=== PATIENT | male | born 1940 | race Caucasian/White ===

== ENCOUNTER 2023-08-02 06:34 | Inpatient (IN) ==
[2023-08-02 07:23] LABS: SARS COV-2 RNA RAPID NAAT NEGATIVE (NEGATIVE)
[2023-08-02] MEDS ORDERED: SODIUM CHLORIDE 1,000 ML IV STA (07:30)
--- NOTE | 2023-08-02 07:30 | ED.PDOC ---
General ED Provider: Dr. LASHAWN CARTER MD Chief Complaint: Fall Stated Complaint: Patient with history of hypertension, type 2 diabetes, states he attempted to get out of bed and his right knee gave out and he fell to the floor hitting his head and complains of neck stiffness, patient also complains of having left-sided posterior rib pain. Patient has pain upon inspiration. Patient denies loss of consciousness, blurred vision, nausea, patient complains of a productive cough over the past week. Denies fever, chills and dyspnea, Time Seen by Provider: 08/02/23 07:23 Mode of Arrival: Ambulance Information Source: Patient and EMT Exam Limitations: Clinical condition Primary Care Provider: JACKIE OLMOS MD Nursing and Triage Documentation Reviewed and Agree: Yes Review of Systems Review Of Systems Constitutional: Reports No symptoms Eyes: Reports No symptoms Respiratory: Reports Cough Cardiac: Reports Chest pain GI: Reports No symptoms : Reports No symptoms Musculoskeletal: Reports No symptoms and Neck pain Skin: Reports No symptoms Neurological: Reports No symptoms Endocrine: Reports No symptoms Hematologic/Lymphatic: Reports No symptoms All Other Systems: Reviewed and Negative [facility] Social History Smoking and tobacco status: Former smoker Alcohol intake: current Substance use type: does not use Special carl needs: No Agree to transfusion: Yes Adopted: No Caregiver/support person: No Foster care: No Household members: spouse Housing: house Marital status: M Lives independently: Yes Number of children: 5 service: No FDC: No Current occupational status: retired History of recent travel: No Do you think of yourself as: straight/heterosexual Current gender identity: male Seatbelt use: always Drives intoxicated or rides with intoxicated motorcycle 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: No Water heater temperature set < 120 degrees: Yes Working smoke detector in home: Yes Fire extinguisher in home: Yes Carbon monoxide detector in home: Yes Physical Exam Physical Exam Appearance: Reports Well-appearing (Patient arrives emergency room via EMS with an intact rigid cervical collar.) Ill-appearing: None Pain Distress: Moderate Eyes: Reports RADHIKA and EOMI ENT: Reports Ears normal, Nose normal and Oropharynx normal Neck: Nonsupple (There is moderate posterior cervical vertebral tenderness) Respiratory: Reports Airway patent, Breath sounds clear, Breath sounds equal and Other (Chest wall there is left posterior chest wall tenderness with swelling from the 8th-12th ribs. There is no ecchymosis or crepitus. I examined his back his neck and his history I examined his ribs are) Cardiovascular: Reports RRR, Pulses normal, No rub and No murmur GI/: Reports Soft, Nontender, No masses and Bowel sounds normal Musculoskeletal: Reports Normal strength, ROM intact and No calf tenderness Skin: Reports Warm and Normal color Neurological: Reports Sensation intact, Motor intact, Reflexes intact, Alert and Oriented (glascow coma 15 scale 15) Psychiatric: Reports Affect appropriate and Mood appropriate Physician Notification Case Discussed Physician Notified: Discussed with Dr. Olmos at 0915 for referral to the hospitalist Time of Notification: 09:15 Comments: Referred to the hospitalist for observation Physician Notified: Discussed with hospitalist Faviola Time of Notification: 09:19 Comments: For admission to observation Critical Care Note Critical Care Note Total Critical Care Time (mins): 0 Course Course 08/02/23 07:46 08/02/23 07:46 Orders, Labs, Meds: Lab Review 08/02/23 08/02/23 07:00 07:46 WBC 13.57 H RBC 3.46 L Hgb 11.9 L Hct 34.8 L MCV 100.6 H MCH 34.4 H MCHC 34.2 RDW Coeff of Charisma 12.2 Plt Count 198 Immature Gran % (Auto) 1.6 Neut % (Auto) 71.2 Lymph % (Auto) 15.3 [place] % (Auto) 11.6 H Eos % (Auto) 0.1 Baso % (Auto) 0.2 Neut # (Auto) 9.7 H Lymph # (Auto) 2.1 [place] # (Auto) 1.6 Eos # (Auto) 0.0 Baso # (Auto) 0.0 Immature Gran # (Auto) 0.2 Sodium 124.0 L Potassium 4.94 Chloride 91.0 L Carbon Dioxide 24.2 Anion Gap 13.74 BUN 29.5 H Creatinine 1.45 H Estimated GFR (MDRD) 46.00 BUN/Creatinine Ratio 20.34 Glucose 273.3 H Calcium 9.02 SARS CoV-2 RNA Rapid BRUCE Negative Orders Category Date Time Status [facility]MIT [facility]IENT [facility] ([facility]IT[facility] BED) ADMISSION 08/02/23 09:18 Active EKG-(ED ONLY) Stat CARDIO 08/02/23 07:35 Completed TELEMETRY MONITORING TELE CARE 08/02/23 09:18 Active BMP [BASIC METABOLIC PANEL] Stat LAB 08/02/23 07:46 Completed CBC W/ AUTO DIFF Stat LAB 08/02/23 07:46 Completed COVID [SARS COV-2 RNA RAPID BRUCE] Stat LAB 08/02/23 07:00 Completed Ceftriaxone/D5w 1 gm Premix [Rocephin 1 gm/50 ml D5w] Meds 08/02/23 09:01 Active 1 gm in 50 ml IV ONCE Morphine Sulfate [Morphine 4 mg/ml Syringe] Meds 08/02/23 07:33 Discontinued 4 mg IVP ONCE ONE Ondansetron HCl/Pf [Zofran 4 mg/2 ml] Meds 08/02/23 07:33 Discontinued 4 mg IVP ONCE STA Sodium Chloride 0.9% [Sodium Chloride] 1,000 ml Meds 08/02/23 07:30 Active IV 100 mls/hr CT CERVICAL SPINE W/O CONTRAST Stat RADS 08/02/23 07:[address] CHEST W/O CONTRAST Stat RADS 08/02/23 07:[address] HEAD W/O CONTRAST Stat RADS 08/02/23 07:30 Completed Medications Generic Name Dose Route Start Last Admin Trade Name Freq PRN Reason Stop Dose Admin Sodium Chloride 1,000 mls @ 100 mls/hr 08/02/23 07:30 08/02/23 07:49 Sodium Chloride IV 08/02/23 17:29 100 mls/hr .Q10H STA Administration CEFTRIAXONE/D5W 1 GM PREMIX 1 gm in 50 mls @ 100 mls/hr 08/02/23 09:01 08/02/23 09:12 Rocephin 1 Gm/50 Ml D5w IV 08/02/23 09:30 100 mls/hr ONCE ONE Administration Discontinued Medications Generic Name Dose Route Start Last Admin Trade Name Freq PRN Reason Stop Dose Admin Morphine Sulfate 4 mg 08/02/23 07:33 08/02/23 07:57 Morphine Sulfate 4 Mg/Ml Syringe IVP 08/02/23 07:34 4 mg ONCE ONE Administration Ondansetron HCl 4 mg 08/02/23 07:33 08/02/23 07:50 Ondansetron Hcl/Pf 4 Mg/2 Ml Sdv IVP 08/02/23 07:34 4 mg ONCE STA Administration Vital Signs: Temp Pulse Resp BP Pulse Ox 08/02/23 06:47 98.8 F 102 H 20 136/77 96 Discharge Plan Discharge Patient Disposition: PLACED OBSERVATION Discharge Problem: Generalized muscle weakness, Acute hyponatremia Left rib fracture Qualifiers: Encounter type: initial encounter Prescriptions: No Action triamterene-hydrochlorothiazid 37.5-25 mg tablet 1 tab PO QAM Qty: 90 1RF Rx Instructions: take one 3-4 times weekly omeprazole 20 mg capsule,delayed release(DR/EC) See Rx Instructions .ROUTE .COMPLEX Qty: 90 1RF Dose Instruction: TAKE 1 CAPSULE EVERY DAY Rx Instructions: TAKE 1 CAPSULE EVERY DAY levothyroxine 100 mcg tablet See Rx Instructions .ROUTE .COMPLEX Qty: 90 1RF Dose Instruction: TAKE 1 TABLET EVERY DAY Rx Instructions: TAKE 1 TABLET EVERY DAY pravastatin 80 mg tablet See Rx Instructions .ROUTE .COMPLEX Qty: 90 1RF Dose Instruction: TAKE 1 TABLET EVERY DAY Rx Instructions: TAKE 1 TABLET EVERY DAY enalapril maleate 5 mg tablet See Rx Instructions .ROUTE .COMPLEX Qty: 90 1RF Dose Instruction: TAKE 1 TABLET EVERY DAY Rx Instructions: TAKE 1 TABLET EVERY DAY diltiazem HCl 240 mg capsule,extended release 24hr See Rx Instructions .ROUTE .COMPLEX Qty: 90 1RF Dose Instruction: TAKE 1 CAPSULE EVERY DAY Rx Instructions: TAKE 1 CAPSULE EVERY DAY glimepiride 4 mg tablet See Rx Instructions .ROUTE .COMPLEX Qty: 90 1RF Dose Instruction: TAKE 1 TABLET EVERY DAY Rx Instructions: TAKE 1 TABLET EVERY DAY Janumet 50-1,000 mg tablet See Rx Instructions .ROUTE .COMPLEX Qty: 180 1RF Dose Instruction: TAKE 1 TABLET TWICE DAILY Rx Instructions: TAKE 1 TABLET TWICE DAILY calcium carbonate [Calcium 600] 600 mg calcium (1,500 mg) tablet 600 mg PO BID vitamin B complex [B Complex-Vitamin B12] Tablet 1 tab PO QDAY Did you review [place] [employer] for ALL controlled substances?: No ED Provider: LINDEN KEMP Condition: Stable Physician Progress Note: History obtained from the patient and spouse who states that getting up out of bed this morning while walking his right knee gave out he fell to the floor injuring his head has neck stiffness and left-sided posterior rib pain and swelling. Patient denies loss of consciousness, dizziness, blurred vision, focal numbness, tingling, weakness in extremities, back pain and abdominal pain. Patient arrives to the emergency room via EMS with a rigid cervical collar intact Glascow coma scale-15 [] Patient given IV fluids normal saline 1 L at 100 mL/hour, Zofran 4 mg, morphine sulfate 4 mg, Patient given Rocephin 1 g IV piggyback Laboratory data COVID is negative, CBC the white blood cell count is 13,500, hemoglobin 1.9, adequate 34.8, platelet count 191,000. Chemistries with sodium 124 chloride 91 potassium 4.8 BUN 29, creatinine 1.4, glucose [address] will follow up intravenous contrast interpreted by the radiologist shows evidence of fracture dislocation there is chronic degenerative disc disease The head CT scan without intravenous contrast interpreted by the radiologist shows no acute intracranial abnormality. No fracture no hemorrhage no mass no midline shift. The chest CT without intravenous contrast interpreted by the radiologist is consistent with a left-sided minimally displaced fractures of the fifth, sixth, seventh ribs. There is no pneumothorax there is trace left pleural effusion with lower lobe airway thickening and consolidation suggestive of atelectasis. There are left renal cyst noted. There is sequela of old granulomatous disease with minimal pleural thickening bilaterally. Differential diagnosis: 1) left rib fractures fifth, sixth, seventh 2) acute cervical strain 3) acute bronchiolitis 4) scalp contusion 5) hyponatremia 6) generalized weakness Discussed with Dr. Olmos at 0918 for referral to the hospitalist for inpatient observation Discussed with the hospitalist Faviola at 0924 observation
[2023-08-02] MEDS ORDERED: ZOFRAN 4 MG/2 ML IVP STA (07:33)
[2023-08-02] MEDS ORDERED: MORPHINE 4 MG/ML SYRINGE IVP ONE (07:33)
[2023-08-02 08:00] LABS: BASOPHILS % (AUTO) 0.2 % (0.0-3.0); EOSINOPHILS % (AUTO) 0.1 % (0.0-7.0); HEMATOCRIT 34.8 % (42.0-52.0); HEMOGLOBIN 11.9 g/dl (14.0-18.0); IMMATURE GRANULOCYTE # (AUTO) 0.2 (0.0-1.0); IMMATURE GRANULOCYTE % (AUTO) 1.6 % (0.0-5.0); LYMPHOCYTES # (AUTO) 2.1 K/uL (0.60-3.4); LYMPHOCYTES % (AUTO) 15.3 (10.0-50.0); MEAN CORPUSCULAR HEMOGLOBIN 34.4 pg (27.0-31.0); MEAN CORPUSCULAR HGB CONC 34.2 (31.8-35.4); MEAN CORPUSCULAR VOLUME 100.6 fl (80.0-94.0); MONOCYTES # (AUTO) 1.6 K/uL (0.4-2.0); MONOCYTES % (AUTO) 11.6 (0-10); NEUTROPHILS # (AUTO) 9.7 K/ul (2.0-6.9); NEUTROPHILS % (AUTO) 71.2 % (42.2-75.2); PLATELET COUNT 198 10^3/uL (140-440); RDW COEFFICIENT OF VARIATION 12.2 % (11.6-14.8); RED BLOOD COUNT 3.46 10^6/ul (4.70-6.10); WHITE BLOOD COUNT 13.57 K/ul (4.2-10.2)
[2023-08-02 08:14] LABS: BLOOD UREA NITROGEN 29.5 mg/dL (9-20); CALCIUM 9.02 mg/dL (8.4-10.2); CARBON DIOXIDE 24.2 mmol/L (22-30.0); CREATININE 1.45 mg/dL (0.60-1.10); GLUCOSE 273.3 mg/dL (74-106); POTASSIUM 4.94 mmol/L (3.5-5.1)
--- NOTE | 2023-08-02 08:21 | CT ---
EXAM: CT BRAIN WITHOUT CONTRAST HISTORY: Fall injury TECHNIQUE: Multi-slice sequential. Coronal and sagittal reformations were performed. COMPARISON: None FINDINGS: There is no acute intracranial hemorrhage, extraxial fluid collection, mass affect, or midlineshift. There is mild to moderate diffuse sulcal prominence. Ventricular prominence is consistent with the degree of parenchymal volume loss. Periventricular white matter hypodensity is seen. Intracranial a therosclerosis is present. The basal cisterns are patent. No large vascular territory area of hypod ensity is seen within the brain. The calvarium is unremarkable. Visualized paranasal sinuses are cl ear. Mastoid air cells are clear. :::::::::::::::::::::::::::::: IMPRESSION: 1. No acute intracranial findings. 2. Atrophy and small vessel ischemic disease. :::::::::::::::::::::::::::::: All CT scans are performed using dose optimization techniques as appropriate to the performed exam an d include at least one of the following: Automated exposure control, adjustment of the mA and/or kV according t o size, and the use of iterative reconstruction technique.
--- NOTE | 2023-08-02 08:23 | CT ---
EXAM: CT CHEST WITHOUT CONTRAST HISTORY: Fall with left-sided chest pain COMPARISON: CT chest 08/13/2020 TECHNIQUE: Serial axial images of the chest were obtained from the lung apices to the upper abdomen without contrast. These were viewed in multiple planes. FINDINGS: The thyroid has been removed. The visualized vessels demonstrate mild scattered atheroscl erotic disease without aneurysm or stenosis. The heart is normal in size without pericardial effusio n. There are no pathologically enlarged mediastinal or hilar lymph nodes. There are calcified left hilar lymph nodes. There is no pneumothorax. There is trace left pleural fluid with lower lobe airway thickening bilate rally with consolidations. There are benign calcifications in the left lower lobe. There is minimal pleural thickening bilaterally. The central airways are patent. Limited views of the soft tissues in the upper abdomen demonstrate low attenuation left renal cysts. The osseous structures demonstrate right shoulder arthroplasty. There are left-sided minimally disp laced fifth, sixth, and seventh rib fractures. There is multilevel degenerative disease of the spine with facet arthropathy. IMPRESSION: 1. Left-sided minimally displaced fifth sixth and seventh rib fractures. There is no pneumothorax. 2. Trace left pleural fluid with lower lobe airway thickening and consolidations suggestive of atele ctasis. 3. Sequela of old granulomatous disease with minimal pleural thickening bilaterally. 4. Left renal cysts. All CT scans are performed using dose optimization techniques as appropriate to the performed exam an d include at least one of the following: Automated exposure control, adjustment of the mA and/or kV according t o size, and the use of iterative reconstruction technique.
--- NOTE | 2023-08-02 08:29 | CT ---
EXAM: CT CERVICAL SPINE WITHOUT INTRAVENOUS CONTRAST 08/02/2023. SAGITTAL AND CORONAL REFORMATTED IM AGES OBTAINED HISTORY: Neck pain. Fall COMPARISON: None. FINDINGS: There is approximately 2 mm anterolisthesis of C6 on C7. The remaining cervical levels ali gn normally. Vertebral bodies appear intact and the facet joints align normally. Multilevel chronic degenerative disc disease. Disc space narrowing most severe at C4-C5. Multilevel moderate facet arthropathy. There is no acute fracture or subluxation. IMPRESSION: Chronic and degenerative findings of the cervical spine. There is no acute post traumati c osseous abnormality. All CT scans are performed using dose optimization techniques as appropriate to the performed exam an d include at least one of the following: Automated exposure control, adjustment of the mA and/or kV according t o size, and the use of iterative reconstruction technique.
[2023-08-02] MEDS ORDERED: ROCEPHIN 1 GM/50 ML D5W 1 GM/50 ML BAG IV ONE (09:01)
[2023-08-02] MEDS ORDERED: TYLENOL PO PRN (09:26)
[2023-08-02] MEDS ORDERED: MORPHINE 2 MG/ML SYRINGE IVP PRN (09:26)
--- NOTE | 2023-08-02 09:26 | PCM ---
Date of Service Date Seen by Provider: 08/02/23 Time Seen by Provider: 10:30 Admit Day/Time Admission Date: 08/02/23 Admission Time: 09:18 Reason for Admission Chief Complaint: SYMPTOMATIC HYPONATREMIA, WEAKNESS, FALL, Hospital Provider Hospital Provider: Alvin Gannon PA-C, [facility] [place] Primary Care Physician Primary Care Physician: JACKIE LYLE MD History of Present Illness History of Present Illness: Patient is a 82 year old male with pmhx of anemia, hypothyroidism s/p thyroidectomy, gerd, hyperlipidemia, hypertension, and DMT2 who presented to ER with fall. He states he got out of bed and then fell onto a carpeted floor on his left side. He laid there about 2 hours. He denies chest pain, sob, tripping. He is unsure if he felt dizzy prior to the fall or not as he was still "half asleep." He states he's been feeling progressively weaker over the past 1 year. He has had a few falls but not frequently. In ER he had a negative ct head and cspine. He had ct chest showing 3 left sided rib fractures. He was given morphine with relief. He was given rocephin due to having a cough last few days. Covid negative. Pt sodium was 124 which is new. He endorses drinking bourbon every night. He also takes HCTZ. Patient admitted to [facility]. Case Discussed With Case Discussed With: Patient's case was discussed with the ER Physicians, Dr. Burnette. [facility] Surgical History Hx of appendectomy Z90.49 - Acquired absence of other specified parts of digestive tract (ICD- 10) Family History FATHER Renal cancer Mother Pancreatic cancer Social History Smoking and tobacco status: Former smoker Alcohol intake: current Alcohol intake frequency: 3 or more drinks per day Alcohol type: hard liquor Substance use type: does not use Special carl needs: No Agree to transfusion: Yes Adopted: No Caregiver/support person: No Foster care: No Household members: spouse Housing: house Marital status: M Lives independently: Yes Number of children: 5 service: No correction: No Current occupational status: retired History of recent travel: No Do you think of yourself as: straight/heterosexual Current gender identity: male Seatbelt use: always Drives intoxicated or rides with intoxicated public transit trolley driver: No Water heater temperature set < 120 degrees: Yes Working smoke detector in home: Yes Fire extinguisher in home: Yes Carbon monoxide detector in home: Yes Allergies Allergies Allergy/AdvReac Type Severity Reaction Status Date / Time No Known Allergies Allergy Verified 08/02/23 06:53 Current Medications Home Medications calcium carbonate 600 mg calcium (1,500 mg) tablet (Calcium) 600 mg PO BID 11/18/22 [History Confirmed 08/02/23 Last Taken Unknown] vitamin B complex (B Complex-Vitamin B12 tablet) 1 tab PO QDAY 11/18/22 [History Confirmed 08/02/23 Last Taken Unknown] triamterene 37.5 mg-hydrochlorothiazide 25 mg tablet 1 tab PO QAM #90 tabs 03/26/23 [Rx Confirmed 08/02/23 Last Taken Unknown] levothyroxine 100 mcg tablet See Rx Instructions .Route .COMPLEX #90 tabs 04/27/23 [Rx Confirmed 08/02/23 Last Taken Unknown] omeprazole 20 mg capsule,delayed release See Rx Instructions .Route .COMPLEX #90 caps 04/27/23 [Rx Confirmed 08/02/23 Last Taken Unknown] pravastatin 80 mg tablet See Rx Instructions .Route .COMPLEX #90 tabs 04/27/23 [Rx Confirmed 08/02/23 Last Taken Unknown] diltiazem HCl 240 mg capsule,extended release 24 hr See Rx Instructions .Route .COMPLEX #90 caps 06/01/23 [Rx Confirmed 08/02/23 Last Taken Unknown] enalapril maleate 5 mg tablet See Rx Instructions .Route .COMPLEX #90 tabs 06/01/23 [Rx Confirmed 08/02/23 Last Taken Unknown] glimepiride 4 mg tablet See Rx Instructions .Route .COMPLEX #90 tabs 06/01/23 [Rx Confirmed 08/02/23 Last Taken Unknown] sitagliptin phosphate 50 mg-metformin 1,000 mg tablet (Janumet) See Rx Instructions .Route .COMPLEX #180 tabs 07/13/23 [Rx Confirmed 08/02/23 Last Taken Unknown] Home Acetaminophen (Acetaminophen 325 Mg Tablet) 650 mg PO Q4H PRN PRN Reason: Mild Pain Hydrocodone Bitart/Acetaminophen (Hydrocodone Bit/Acetaminophen 5/325 Mg Tablet) 1 tab PO Q6HR PRN PRN Reason: Pain Diltiazem HCl (Diltiazem Hcl 120 Mg Cap.Er.24h) 120 mg PO DAILY [facility] Enalapril Maleate (Enalapril Maleate 5 Mg Tablet) 5 mg PO DAILY [facility] Enoxaparin Sodium (Enoxaparin Sodium 40 Mg/0.4 Ml Syr) 40 mg SUBCUT DAILY [facility] Glimepiride (Glimepiride 2 Mg Tablet) 2 mg PO 0800 [facility] Guaifenesin/Dextromethorphan (Guaifenesin/Dextromethorphan 200/20 Mg/10 Ml Cup) 5 ml PO Q6HR PRN PRN Reason: Cough Sodium Chloride (Sodium Chloride) 1,000 mls @ 125 mls/hr IV .Q8H [facility] Last Admin: 08/02/23 10:04 Dose: 125 mls/hr Insulin Human Lispro (Insulin Lispro 100 Unit/Ml (3 Ml) Vial) 0 unit SUBCUT PRN PRN; Protocol PRN Reason: Hyperglycemia Last Admin: 08/02/23 11:17 Dose: 8 unit Levothyroxine Sodium (Levothyroxine Sodium 100 Mcg Tablet) 100 mcg PO 0700 [facility] Lidocaine (Lidocaine 5% Patch) 1 patch TP DAILY [facility] Last Admin: 08/02/23 11:17 Dose: 1 patch Morphine Sulfate (Morphine Sulfate 2 Mg/Ml Syringe) 2 mg IVP Q6H PRN PRN Reason: Pain Omeprazole (Omeprazole 20 Mg Capsule.Dr) 40 mg PO DAILY [facility] Pravastatin Sodium (Pravastatin Sodium 40 Mg Tablet) 40 mg PO DAILY [facility] Discontinued Medications Sodium Chloride (Sodium Chloride) 1,000 mls @ 100 mls/hr IV .Q10H STA Stop: 08/02/23 17:29 Last Infusion: 08/02/23 10:56 Dose: Infused CEFTRIAXONE/D5W 1 GM PREMIX (Rocephin 1 Gm/50 Ml D5w) 1 gm in 50 mls @ 100 mls/hr IV ONCE ONE Stop: 08/02/23 09:30 Last Admin: 08/02/23 09:12 Dose: 100 mls/hr MAGNESIUM SULFATE IN WATER (Magnesium Sulf 2 G/50 Ml Bag) 2 gm in 50 mls @ 25 mls/hr IV ONCE ONE Stop: 08/02/23 13:04 Last Admin: 08/02/23 12:25 Dose: 25 mls/hr Morphine Sulfate (Morphine Sulfate 4 Mg/Ml Syringe) 4 mg IVP ONCE ONE Stop: 08/02/23 07:34 Last Admin: 08/02/23 07:57 Dose: 4 mg Ondansetron HCl (Ondansetron Hcl/Pf 4 Mg/2 Ml Sdv) 4 mg IVP ONCE STA Stop: 08/02/23 07:34 Last Admin: 08/02/23 07:50 Dose: 4 mg Review of Systems Constitutional: Reports Fatigue and Weakness; Denies Fever Head: Reports Normocephalic and Atraumatic Throat: Denies Sore Throat or Difficulty Swallowing Cardiovascular: Reports Other (+left chest wall pain due to rib fractures ); Denies Chest pain or Chest Pressure Respiratory: Reports Cough; Denies Shortness of air Gastrointestinal: Denies Nausea, Vomiting, Diarrhea, Abdominal pain or Melena Genitourinary: Denies Dysuria, Hematuria or Frequency Musculoskeletal: Reports Other (+left chest wall pain ) Dermatologic: Denies Rashes Neurological: Reports Weakness and Problems with walking; Denies Syncope or Loss of Conciousness Physical examination Most Recent Vital Signs: Most Recent Vital Signs Temperature 98.8 F 08/02/23 06:47 Temperature Source Infrared 08/02/23 06:47 Pulse Rate 102 H 08/02/23 06:47 Respiratory Rate 20 08/02/23 06:47 Blood Pressure 136/77 08/02/23 06:47 O2 Sat by Pulse Oximetry 96 08/02/23 06:47 Height 6 ft 08/02/23 06:47 Weight 186 lb 1.122 oz 08/02/23 06:47 Appearance: Positive Well-appearing, Well-nourished, No Apparent Distress and Alert and Oriented x3 Skin: Positive [place], Warm and Good Turgor; Negative Rashes HEENT: Positive Normocephalic and Atraumatic Neck: Positive Supple and Midline Trachea Chest/Lungs: Positive Clear to Auscultation Bilaterally and Tenderness Upon Chest Palpation (+left lateral chest wall. No bruising noted at this time. ); Negative Rales, Rhonci or Wheezes Heart: Positive RRR GI/: Positive Soft, Nontender, Bowel Sounds Normal and No Distention Extremities: Positive Intact Peripheral Pulses; Negative Edema Neurological: Positive Cranial Nerves Intact, Alert, Oriented and Other (+generalized weakness, no focal deficits. ) Psychiatric: Positive Oriented x4, Appropriate Mood and Appropriate Affect Labs This Visit Labs This Visit: Labs This Visit 08/02/23 08/02/23 07:00 07:46 WBC 13.57 H RBC 3.46 L Hgb 11.9 L Hct 34.8 L MCV 100.6 H MCH 34.4 H MCHC 34.2 RDW Coeff of Charisma 12.2 Plt Count 198 Immature Gran % (Auto) 1.6 Neut % (Auto) 71.2 Lymph % (Auto) 15.3 [place] % (Auto) 11.6 H Eos % (Auto) 0.1 Baso % (Auto) 0.2 Neut # (Auto) 9.7 H Lymph # (Auto) 2.1 [place] # (Auto) 1.6 Eos # (Auto) 0.0 Baso # (Auto) 0.0 Immature Gran # (Auto) 0.2 Sodium 124.0 L Potassium 4.94 Chloride 91.0 L Carbon Dioxide 24.2 Anion Gap 13.74 BUN 29.5 H Creatinine 1.45 H Estimated GFR (MDRD) 46.00 BUN/Creatinine Ratio 20.34 Glucose 273.3 H Calcium 9.02 SARS CoV-2 RNA Rapid BRUCE Negative Imaging Imaging: EXAM: CT CHEST WITHOUT CONTRAST HISTORY: Fall with left-sided chest pain COMPARISON: CT chest 08/13/2020 TECHNIQUE: Serial axial images of the chest were obtained from the lung apices to the upper abdomen without contrast. These were viewed in multiple planes. FINDINGS: The thyroid has been removed. The visualized vessels demonstrate mild scattered atherosclerotic disease without aneurysm or stenosis. The heart is normal in size without pericardial effusion. There are no pathologically enlarged mediastinal or hilar lymph nodes. There are calcified left hilar lymph nodes. There is no pneumothorax. There is trace left pleural fluid with lower lobe airway thickening bilaterally with consolidations. There are benign calcifications in the left lower lobe. There is minimal pleural thickening bilaterally. The central airways are patent. Limited views of the soft tissues in the upper abdomen demonstrate low attenuation left renal cysts. The osseous structures demonstrate right shoulder arthroplasty. There are left-sided minimally displaced fifth, sixth, and seventh rib fractures. There is multilevel degenerative disease of the spine with facet arthropathy. IMPRESSION: 1. Left-sided minimally displaced fifth sixth and seventh rib fractures. There is no pneumothorax. 2. Trace left pleural fluid with lower lobe airway thickening and consolidations suggestive of atelectasis. 3. Sequela of old granulomatous disease with minimal pleural thickening bilaterally. 4. Left renal cysts. EXAM: CT BRAIN WITHOUT CONTRAST HISTORY: Fall injury TECHNIQUE: Multi-slice sequential. Coronal and sagittal reformations were performed. COMPARISON: None FINDINGS: There is no acute intracranial hemorrhage, extraxial fluid collection, mass affect, or midlineshift. There is mild to moderate diffuse sulcal prominence. Ventricular prominence is consistent with the degree of parenchymal volume loss. Periventricular white matter hypodensity is seen. Intracranial atherosclerosis is present. The basal cisterns are patent. No large vascular territory area of hypodensity is seen within the brain. The calvarium is unremarkable. Visualized paranasal sinuses are clear. Mastoid air cells are clear. :::::::::::::::::::::::::::::: IMPRESSION: 1. No acute intracranial findings. 2. Atrophy and small vessel ischemic disease. EXAM: CT CERVICAL SPINE WITHOUT INTRAVENOUS CONTRAST 08/02/2023. SAGITTAL AND CORONAL REFORMATTED IMAGES OBTAINED HISTORY: Neck pain. Fall COMPARISON: None. FINDINGS: There is approximately 2 mm anterolisthesis of C6 on C7. The remaining cervical levels align normally. Vertebral bodies appear intact and the facet joints align normally. Multilevel chronic degenerative disc disease. Disc space narrowing most severe at C4-C5. Multilevel moderate facet arthropathy. There is no acute fracture or subluxation. IMPRESSION: Chronic and degenerative findings of the cervical spine. There is no acute post traumatic osseous abnormality. Review Statement Review Statement: I have independently reviewed and interpreted the labs/EKGs/imaging that were ordered by the ER provider. I have reviewed all outside records that are available currently in our EMR including imaging/notes/labs from previous visits. Plan Plan: 1. Acute symptomatic hyponatremia with weakness and fall - NS started in ER. Cont NS at 125 ml/hr. Will recheck at 1600. Urine sodium, urine/serum osmolality ordered. Hold HCTZ. Alcohol could be contributing as well. 2. Left 5th, 6th, and 7th rib fractures s/p fall - Robitussin for cough, tylenol/norco/morphine ordered prn for pain control. Incentive spirometry ordered. Lidocaine patch daily. 3. Weakness and fall - PT/OT consult 4. Hyperlipidemia - Cont home meds 5. Hypothyroidism s/p thyroidectomy - Check TSH. Cont home meds 6. Hypertension - Cont home meds except hold hctz. 7. DMT2 - Cont home meds, humalog sliding scale, accuchecks q6hrs, diabetic diet. Hold metformin. 8. Hypomagnesemia - 1.66. Will give 2 mg rider, recheck in AM. DVT Prophylaxis: Lovenox Time Spent: Greater than 80 minutes spent with patient, 50% of the time spent with this patient was devoted to counseling and coordination of care. [facility] minutes spent discussing advance care planning. FULL CODE Admit to: Inpatient Discussed Plan of Care with Dr. Fina Lyle. Medications Medication Orders: Medications Ordered Category Date Time Status Ceftriaxone/D5w 1 gm Premix [Rocephin 1 gm/50 ml D5w] Meds 08/02/23 09:01 Active 1 gm in 50 ml IV ONCE Sodium Chloride 0.9% [Sodium Chloride] 1,000 ml Meds 08/02/23 07:30 Active IV 100 mls/hr
[2023-08-02 09:43] LABS: MAGNESIUM 1.66 mg/dL (1.6-2.3)
[2023-08-02] MEDS: SODIUM CHLORIDE 1,000 ML IV SCH ×2 (10:04→18:36)
[2023-08-02 10:05] LABS: CREATINE KINASE 226.6 U/L (55-170)
[2023-08-02 10:14] LABS: THYROID STIMULATING HORMONE 2.29 uIU/L (0.465-4.68)
[2023-08-02 10:17] VITALS: BMI 24.5
[2023-08-02 10:20] LABS: CREATINE KINASE MB 1.56 ng/ml (0.0-2.38)
[2023-08-02] MEDS ORDERED: MAGNESIUM SULF 2 G/50 ML BAG 2 GM/50 ML PIGGYBACK IV ONE (11:05)
[2023-08-02] MEDS: HUMALOG SUBCUT PRN ×3 (11:17→21:03)
[2023-08-02] MEDS: LIDODERM 5 % PATCH TP SCH (11:17)
[2023-08-02] MEDS ORDERED: VASOTEC PO ONE (15:49)
[2023-08-02] MEDS ORDERED: CARDIZEM CD PO ONE (15:54)
[2023-08-02] MEDS ORDERED: CARDIZEM CD PO SCH (15:55)
[2023-08-02] MEDS: NORCO 5-325 PO PRN (16:31)
[2023-08-02 16:36] LABS: BLOOD UREA NITROGEN 30.6 mg/dL (9-20); CARBON DIOXIDE 25.1 mmol/L (22-30.0); CHLORIDE 90.4 mmol/L (98-107); CREATININE 1.45 mg/dL (0.60-1.10); GLUCOSE 346.6 mg/dL (74-106); POTASSIUM 4.88 mmol/L (3.5-5.1); SODIUM 124.4 mmol/L (134.5-145)
[2023-08-02] MEDS: ROBITUSSIN DM SYRUP PO PRN (21:00)
[2023-08-02 21:23] LABS: BLOOD UREA NITROGEN 29.2 mg/dL (9-20); CALCIUM 8.58 mg/dL (8.4-10.2); CARBON DIOXIDE 23.5 mmol/L (22-30.0); CHLORIDE 92.9 mmol/L (98-107); CREATININE 1.23 mg/dL (0.60-1.10); GLUCOSE 290.8 mg/dL (74-106); POTASSIUM 4.73 mmol/L (3.5-5.1); SODIUM 122.1 mmol/L (134.5-145)
[2023-08-02] MEDS: SODIUM CHLORIDE 3% 500 ML IV SCH (22:18)
[2023-08-03 02:50] LABS: BLOOD UREA NITROGEN 26.6 mg/dL (9-20); CALCIUM 8.49 mg/dL (8.4-10.2); CARBON DIOXIDE 25.2 mmol/L (22-30.0); CHLORIDE 94.6 mmol/L (98-107); CREATININE 1.18 mg/dL (0.60-1.10); GLUCOSE 255.7 mg/dL (74-106); POTASSIUM 4.74 mmol/L (3.5-5.1); SODIUM 124.3 mmol/L (134.5-145)
[2023-08-03] MEDS: NORCO 5-325 PO PRN ×3 (03:03→15:25)
[2023-08-03] MEDS: ROBITUSSIN DM SYRUP PO PRN ×3 (03:12→15:26)
[2023-08-03 05:21] LABS: BASOPHILS % (AUTO) 0.2 % (0.0-3.0); EOSINOPHILS # (AUTO) 0.1 K/ul (0.0-0.7); EOSINOPHILS % (AUTO) 0.4 % (0.0-7.0); HEMATOCRIT 33.7 % (42.0-52.0); HEMOGLOBIN 11.4 g/dl (14.0-18.0); IMMATURE GRANULOCYTE # (AUTO) 0.2 (0.0-1.0); IMMATURE GRANULOCYTE % (AUTO) 1.1 % (0.0-5.0); LYMPHOCYTES # (AUTO) 1.8 K/uL (0.60-3.4); LYMPHOCYTES % (AUTO) 13.9 (10.0-50.0); MEAN CORPUSCULAR HEMOGLOBIN 33.8 pg (27.0-31.0); MEAN CORPUSCULAR HGB CONC 33.8 (31.8-35.4); MONOCYTES # (AUTO) 1.8 K/uL (0.4-2.0); MONOCYTES % (AUTO) 13.6 (0-10); NEUTROPHILS # (AUTO) 9.2 K/ul (2.0-6.9); NEUTROPHILS % (AUTO) 70.8 % (42.2-75.2); PLATELET COUNT 212 10^3/uL (140-440); RED BLOOD COUNT 3.37 10^6/ul (4.70-6.10); WHITE BLOOD COUNT 13.05 K/ul (4.2-10.2)
[2023-08-03 05:33] LABS: ALANINE AMINOTRANSFERASE 21.9 U/L (0-50); ALBUMIN 3.67 g/dL (3.5-5.0); ALKALINE PHOSPHATASE 83.3 U/L (56-119); ASPARTATE AMINO TRANSFERASE 25.4 U/L (17-59); BILIRUBIN,TOTAL 0.55 mg/dL (0.2-1.3); BLOOD UREA NITROGEN 24.9 mg/dL (9-20); CALCIUM 8.62 mg/dL (8.4-10.2); CHLORIDE 95.6 mmol/L (98-107); CREATININE 1.24 mg/dL (0.60-1.10); MAGNESIUM 1.96 mg/dL (1.6-2.3); POTASSIUM 4.63 mmol/L (3.5-5.1); TOTAL PROTEIN 6.93 g/dL (6.3-8.2)
[2023-08-03] MEDS: SYNTHROID PO SCH (06:10)
[2023-08-03] MEDS: HUMALOG SUBCUT PRN ×4 (06:10→23:10)
[2023-08-03] MEDS ORDERED: AMARYL PO SCH (08:00)
[2023-08-03] MEDS: VASOTEC PO SCH (08:46)
[2023-08-03] MEDS: CARDIZEM CD PO SCH (08:47)
[2023-08-03] MEDS: LIDODERM 5 % PATCH TP SCH (08:47)
[2023-08-03] MEDS: PRAVACHOL PO SCH (08:47)
--- NOTE | 2023-08-03 08:51 | PCM.PROG ---
Date/Time Seen Date Seen by Provider: 08/03/23 Time Seen by Provider: 08:30 Provider Provider[facility] Chief Complaint Chief Complaint: SYMPTOMATIC HYPONATREMIA, WEAKNESS, FALL, Subjective Subjective: Patient is feeling better today. Having better pain control with norco. He got decent rest overnight. Nurse reports he was mildly confused this morning but it resolved. He is going to work with therapy today. Eating breakfast well this morning. Na slow to improve. Objective Appearance: Positive Well-appearing, Well-nourished, No Apparent Distress and Alert and Oriented x3 Chest/Lungs: Positive Clear to Auscultation Bilaterally and Tenderness Upon Chest Palpation (+left lateral chest wall); Negative Rales, Rhonci or Wheezes Heart: Positive RRR GI/: Positive Soft, Nontender, Bowel Sounds Normal and No Distention Musculoskeletal: Positive Other (No edema ) Neurological: Positive Cranial Nerves Intact, Alert, Oriented and Other (+ge neralized weakness ) Vital Signs Vital Signs: Vital Signs: Last 24 Hours 08/02/23 09:52 08/02/23 09:52 08/02/23 11:01 Temperature 97.3 F L Temperature Source Oral Pulse Rate 100 Pulse Rate [Apical] 102 H Respiratory Rate 16 18 Blood Pressure Blood Pressure Mean Blood Pressure Left Arm 147/76 Blood Pressure Location Blood Pressure Position Sitting O2 Sat by Pulse Oximetry 96 Oxygen Delivery Method Room Air Room Air Height 6 ft Weight 181 lb 6 oz Telemetry Type Remote Telemetry Telemetry Monitoring Started Telemetry Heart Rate 102 H EKG VT Interval 0.16 EKG QRS Interval 0.[address] 08/02/23 13:00 08/02/23 14:00 08/02/23 18:00 Temperature 97.3 F L 98.0 F Temperature Source Temporal Artery Scan Temporal Artery Scan Pulse Rate 107 H 95 Pulse Rate [Apical] Respiratory Rate 26 H 18 Blood Pressure 168/87 H 127/70 Blood Pressure Mean 114 89 Blood Pressure Left Arm Blood Pressure Location Left Arm Left Arm Blood Pressure Position Sitting O2 Sat by Pulse Oximetry 95 95 Oxygen Delivery Method Room Air Room Air Height Weight Telemetry Type Remote Telemetry Telemetry Monitoring Continues Telemetry Heart Rate 101 H EKG VT Interval 0.19 EKG QRS Interval 0.[address] 08/02/23 19:00 08/02/23 20:00 08/02/23 21:26 Temperature 98.3 F Temperature Source Temporal Artery Scan Pulse Rate 86 Pulse Rate [Apical] 98 Respiratory Rate 18 19 Blood Pressure 130/79 Blood Pressure Mean 96 Blood Pressure Left Arm Blood Pressure Location Left Arm Blood Pressure Position Supine O2 Sat by Pulse Oximetry 96 Oxygen Delivery Method Room Air Room Air Height Weight Telemetry Type Remote Telemetry Telemetry Monitoring Continues Telemetry Heart Rate 94 EKG VT Interval 0.18 EKG QRS Interval 0.04 L Telemetry Strip Reading SR 08/03/23 01:00 08/03/23 02:00 08/03/23 05:10 Temperature 98.6 F 97.5 F L Temperature Source Temporal Artery Scan Temporal Artery Scan Pulse Rate 95 99 Pulse Rate [Apical] Respiratory Rate 19 17 Blood Pressure 141/89 H 146/87 H Blood Pressure Mean 106 106 Blood Pressure Left Arm Blood Pressure Location Left Arm Blood Pressure Position Supine O2 Sat by Pulse Oximetry 96 96 Oxygen Delivery Method Room Air Room Air Height Weight Telemetry Type Remote Telemetry Telemetry Monitoring Continues Telemetry Heart Rate 93 EKG VT Interval 0.14 EKG QRS Interval 0.09 Telemetry Strip Reading SR 08/03/23 07:00 Temperature Temperature Source Pulse Rate Pulse Rate [Apical] Respiratory Rate Blood Pressure Blood Pressure Mean Blood Pressure Left Arm Blood Pressure Location Blood Pressure Position O2 Sat by Pulse Oximetry Oxygen Delivery Method Height Weight Telemetry Type Remote Telemetry Telemetry Monitoring Continues Telemetry Heart Rate 100 EKG VT Interval 0.18 EKG QRS Interval 0.05 L Telemetry Strip Reading SR Lab Results Lab Results: Lab Results: Last 24 Hours 08/03/23 08/03/23 08/02/23 05:01 02:30 20:52 WBC 13.05 H RBC 3.37 L Hgb 11.4 L Hct 33.7 L MCV 100.0 H MCH 33.8 H MCHC 33.8 RDW Coeff of Charisma 12.0 Plt Count 212 Immature Gran % (Auto) 1.1 Neut % (Auto) 70.8 Lymph % (Auto) 13.9 [place] % (Auto) 13.6 H Eos % (Auto) 0.4 Baso % (Auto) 0.2 Neut # (Auto) 9.2 H Lymph # (Auto) 1.8 [place] # (Auto) 1.8 Eos # (Auto) 0.1 Baso # (Auto) 0.0 Immature Gran # (Auto) 0.2 Sodium 125.0 L 124.3 L 122.1 L Potassium 4.63 4.74 4.73 Chloride 95.6 L 94.6 L 92.9 L Carbon Dioxide 25.0 25.2 23.5 Anion Gap 9.03 9.24 10.43 BUN 24.9 H 26.6 H 29.2 H Creatinine 1.24 H 1.18 H 1.23 H Estimated GFR (MDRD) 56.00 59.00 56.00 BUN/Creatinine Ratio 20.08 22.54 23.73 Glucose 271.0 H 255.7 H 290.8 H D Calcium 8.62 8.49 8.58 Magnesium 1.96 Total Bilirubin 0.55 AST 25.4 ALT 21.9 Alkaline Phosphatase 83.3 Total Creatine Kinase CK-MB (CK-2) CK-MB (CK-2) % Total Protein 6.93 Albumin 3.67 Globulin 3.26 Albumin/Globulin Ratio 1.12 TSH 08/02/23 08/02/23 16:15 07:46 WBC RBC Hgb Hct MCV MCH MCHC RDW Coeff of Charisma Plt Count Immature Gran % (Auto) Neut % (Auto) Lymph % (Auto) [place] % (Auto) Eos % (Auto) Baso % (Auto) Neut # (Auto) Lymph # (Auto) [place] # (Auto) Eos # (Auto) Baso # (Auto) Immature Gran # (Auto) Sodium 124.4 L Potassium 4.88 Chloride 90.4 L Carbon Dioxide 25.1 Anion Gap 13.78 BUN 30.6 H Creatinine 1.45 H Estimated GFR (MDRD) 46.00 BUN/Creatinine Ratio 21.10 Glucose 346.6 H D Calcium 9.00 Magnesium 1.66 Total Bilirubin AST ALT Alkaline Phosphatase Total Creatine Kinase 226.6 H CK-MB (CK-2) 1.560 CK-MB (CK-2) % 0.6800 Total Protein Albumin Globulin Albumin/Globulin Ratio TSH 2.290 Additional Comments Additional Comments: I have independently reviewed and interpreted the labs/EKGs/imaging ordered during this hospital stay. I have reviewed outside records that are available in our EMR that pertain to medical stay including imaging/notes/labs from previous visits. Active Medications Active Medications: Medications Generic Name Dose Route Start Last Admin Trade Name Freq PRN Reason Stop Dose Admin Acetaminophen 650 mg 11/12/23 09:26 Acetaminophen 325 Mg Tablet PO Q4H PRN Mild Pain Hydrocodone Bitart/Acetaminophen 1 tab 08/02/23 10:42 08/03/23 03:03 Hydrocodone Bit/Acetaminophen 5/325 Mg Tablet PO 1 tab Q6HR PRN Administration Pain Diltiazem HCl 120 mg 08/03/23 09:00 Diltiazem Hcl 120 Mg Cap.Er.24h PO DAILY [facility] Enalapril Maleate 5 mg 08/03/23 09:00 Enalapril Maleate 5 Mg Tablet PO DAILY [facility] Enoxaparin Sodium 40 mg 08/03/23 09:00 Enoxaparin Sodium 40 Mg/0.4 Ml Syr SUBCUT DAILY [facility] Glimepiride 2 mg 08/03/23 08:00 Glimepiride 2 Mg Tablet PO 0800 [facility] Guaifenesin/Dextromethorphan 5 ml 08/02/23 10:43 08/03/23 03:12 Guaifenesin/Dextromethorphan 200/20 Mg/10 Ml Cup PO 5 ml Q6HR PRN Administration Cough Sodium Chloride 500 mls @ 30 mls/hr 08/02/23 22:00 08/02/23 22:18 Sodium Chloride 3% IV 30 mls/hr .[id number] SUE Administration Insulin Human Lispro 0 unit 08/02/23 20:54 08/03/23 06:10 Insulin Lispro 100 Unit/Ml (3 Ml) Vial SUBCUT 10 unit PRN PRN Administration Hyperglycemia Protocol Levothyroxine Sodium 100 mcg 08/03/23 07:00 08/03/23 06:10 Levothyroxine Sodium 100 Mcg Tablet PO 100 mcg 0700 [facility] Administration Lidocaine 1 patch 08/02/23 11:00 08/02/23 11:17 Lidocaine 5% Patch TP 1 patch DAILY [facility] Administration Morphine Sulfate 2 mg 08/02/23 09:26 08/02/23 21:01 Morphine Sulfate 2 Mg/Ml Syringe IVP 2 mg Q6H PRN Administration Pain Omeprazole 40 mg 08/03/23 09:00 Omeprazole 20 Mg Capsule.Dr PO DAILY [facility] Pravastatin Sodium 40 mg 08/03/23 09:00 Pravastatin Sodium 40 Mg Tablet PO DAILY [facility] Plan Plan: 1. Acute symptomatic hyponatremia with weakness and fall - Improved. NS stopped last night and 3% at 30 ml/hr ordered. Continue for now. Repeat BMP 1100. Urine sodium, urine/serum osmolality ordered. Hold HCTZ. Alcohol could be contributing as well. 2. Left 5th, 6th, and 7th rib fractures s/p fall - Robitussin for cough, tylenol/norco/morphine ordered prn for pain control. Incentive spirometry ordered. Lidocaine patch daily. 3. Weakness and fall - PT/OT consult 4. Hyperlipidemia - Cont home meds 5. Hypothyroidism s/p thyroidectomy - Cont home meds 6. Hypertension - Cont home meds except hold hctz. 7. DMT2 - Cont home meds, humalog sliding scale, accuchecks q6hrs, diabetic diet. Hold metformin. 8. Hypomagnesemia - Improved. DVT: Lovenox Dispo: Will require at least one more midnight due to sodium. Review Statement Review Statement: I have personally discussed and reviewed the patient's visit/currently labs/imaging/decision making with Dr. Lyle, my supervising attending. Greater that 50 minutes spent with patient, 50% of the time spent with this patient was devoted to counseling and coordination of care.
[2023-08-03] MEDS: LOVENOX SUBCUT SCH (08:54)
[2023-08-03] MEDS ORDERED: PRILOSEC PO SCH (09:00)
--- NOTE | 2023-08-03 10:29 | RS.PTINEVL ---
Subjective Patient information Date of Evaluation: 08/03/23 Date of Arrival on Unit: 08/02/23 Admitted From:: Home Diagnosis: fall, Fx L5th, 6th, 7th ribs, hyponatremia Usual Living Arrangement: With Spouse Living Arrangement Comments: Lives with spouse Home Environment: House, Stairs (few) and Rail Medical History: Hypertension, Diabetes and Arthritis Medical History Comments:: hypothyroidism, GERD LATEX ALLERGY?: No Surgical History: Knee Replacement and Shoulder Replacement (Right) Surgical History Comments:: thyroidectomy Medications: see chart Subjective Information/ Patient Comments:: pt states he went to get up out of bed and leg gave out and fell and he and his could not get him up from floor. 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 Current Level of Function: Partially Dependent Current Equipment Used at Home: glucometer, has rwx but did not use prior Pain Assessement Location Ribs: Description: Sharp and Aching Pain Behavior: Moaning and Facial Grimacing Pain Aggravating Factors: Changing Position and Standing Interventions Objective Patient Orientation: Person, Place, Time and Situation Current Interventions: IV's and Telemetry Observation: dressing in place L elbow Range of Motion ROM Right Upper Extremity AROM: WFL's Left Upper Extremity AROM: WFL's Right Lower Extremity AROM: WFL's Left Lower Extremity AROM: WFL's Muscle Strength Muscle Strength Right Upper Extremity: Mild Weakness (shld flex 4/5, elbow flex/ext 4+/5) Left Upper Extremity: Mild Weakness (shld flex 4/5, elbow flex/ext 4+/5) Right Lower Extremity: Mild Weakness (hip flex 4/5, knee flex/ext 4+/5, ankle DF/PF 4+/5) Left Lower Extremity: Mild Weakness (hip flex 4/5, knee flex/ext 4+/5, ankle DF/PF 4+/5) Sensation Sensation Right Upper Extremity: Intact/Normal Left Upper Extremity: Intact/Normal Right Lower Extremity: Intact/Normal Left Lower Extremity: Intact/Normal Palpation Palpation Findings: Tenderness (L ribs) Balance Sitting Balance and Reactions Static Sitting Balance: Good Dynamic Sitting Balance: Good Standing Balance and Reactions Static Standing Balance: Fair (fair-) Dynamic Standing Balance: Poor Functional Mobility Bed Mobility Comments:: pt seen sitting up in bedside chair Transfers Sit to Stand: CGA, Min Assist and 1 person assist Stand to Sit: CGA and 1 person assist Safety Awareness Safety Awareness: Fair ASHLEY INDEX SCORE: n/a Ambulation Ambulation Assistive Device Used: Rolling Walker Orthotic/Prosthetic Device: No Distance: 140ft Assistance needed with Ambulation: CGA, Min Assist and 1 person assist Quality of Ambulation: pt amb with CGA to min x1 +1 for IV pole Gait Deviations: Forward posture and Short stride Ambulation Comments: pt with 2 episodes of catching his toes as initiated gait required min assist to prevent fall. Factors Affecting Ambulation: Decreased Balance, Weakness, Decreased Coordination, Decreased Safety and Limited Endurance Treatment time Units charged Gait trainin Time with patient Length of Evaluation: 19 Total treatment time: 32 Patient Education Education Patient Education: Activity Modification and Education of Plan of Care Teaching Recipient: Patient Teaching Methods: Discussion and Demonstration Comments: discussion regarding POC and home safety Assessment Assessment Problem List:: Decreased level of function, Requires training/education, Decreased safety/Risk of falls and Weakness Rehab Potential: Good Further Therapy Indicated?: Yes Candidate for Swing Bed for Therapy Services?: Would need to reassess closer to time, pt may be too high level. Evaluation Complexity: HISTORY: Medium, EXAM OF BODY SYSTEMS: Medium, CLINICAL PRESENTATION: Medium and CLINICAL DECISION MAKING: Medium Patient's Goal(s): "return home with my " Short Term Goals GOAL #1: pt independent with rolling and scooting in bed. Goal to be met by: 08/05/23 GOAL #2: Transfer sup to/from sit CGA Goal to be met by: 08/05/23 GOAL #3: Transfer sit to/from stand CGA Goal to be met by: 08/05/23 GOAL #4: pt amb with rwx 150ft with CGA no LOB Goal to be met by: 08/05/23 GOAL #5: Improve BLE strength 4+ to 5/5 Goal to be met by: 08/05/23 GOAL #6: Improve dyn stand balance fair- Goal to be met by: 08/05/23 Sign Language Interpreter Goals GOAL #1: pt transfer sup to/from sit to/from stand independently. Goal to be met by: 08/07/23 GOAL #2: pt amb with/without AD functional household distances with SBA/independent Goal to be met by: 08/07/23 GOAL #3: Improve dyn stand balance fair Goal to be met by: 08/07/23 Plan Plan of Care: Therapeutic EX, Neuromuscular Re-Educ and Therapeutic Activity Other:: gait training Frequency of Treatment: BID Duration of Treatment: 5 days Anticipated Discharge Destination: Home Treatment Diagnosis (ICD 10 Codes): falls R 29.6 rib fx impaired balance R 26.81 difficulty walking R26.2 weakness M62.81 Has the Physician been added for Co-signature?: Yes
[2023-08-03 12:40] LABS: BLOOD UREA NITROGEN 26.3 mg/dL (9-20); CALCIUM 8.74 mg/dL (8.4-10.2); CARBON DIOXIDE 25.3 mmol/L (22-30.0); CREATININE 1.17 mg/dL (0.60-1.10); GLUCOSE 305.1 mg/dL (74-106); POTASSIUM 4.93 mmol/L (3.5-5.1); SODIUM 125.4 mmol/L (134.5-145)
[2023-08-03] MEDS: SODIUM CHLORIDE 3% 500 ML IV SCH (14:16)
[2023-08-03 17:19] LABS: BLOOD UREA NITROGEN 29.1 mg/dL (9-20); CALCIUM 8.53 mg/dL (8.4-10.2); CARBON DIOXIDE 28.7 mmol/L (22-30.0); CHLORIDE 97.1 mmol/L (98-107); CREATININE 1.31 mg/dL (0.60-1.10); POTASSIUM 5.13 mmol/L (3.5-5.1)
[2023-08-04 05:50] LABS: BASOPHILS % (AUTO) 0.2 % (0.0-3.0); EOSINOPHILS # (AUTO) 0.1 K/ul (0.0-0.7); EOSINOPHILS % (AUTO) 0.3 % (0.0-7.0); HEMATOCRIT 35.1 % (42.0-52.0); HEMOGLOBIN 11.7 g/dl (14.0-18.0); IMMATURE GRANULOCYTE # (AUTO) 0.2 (0.0-1.0); IMMATURE GRANULOCYTE % (AUTO) 1.3 % (0.0-5.0); LYMPHOCYTES # (AUTO) 2.3 K/uL (0.60-3.4); LYMPHOCYTES % (AUTO) 15.7 (10.0-50.0); MEAN CORPUSCULAR HEMOGLOBIN 33.8 pg (27.0-31.0); MEAN CORPUSCULAR HGB CONC 33.3 (31.8-35.4); MEAN CORPUSCULAR VOLUME 101.4 fl (80.0-94.0); MONOCYTES % (AUTO) 13.6 (0-10); NEUTROPHILS # (AUTO) 9.9 K/ul (2.0-6.9); NEUTROPHILS % (AUTO) 68.9 % (42.2-75.2); PLATELET COUNT 253 10^3/uL (140-440); RDW COEFFICIENT OF VARIATION 12.3 % (11.6-14.8); RED BLOOD COUNT 3.46 10^6/ul (4.70-6.10); WHITE BLOOD COUNT 14.38 K/ul (4.2-10.2)
[2023-08-04 06:06] LABS: ALBUMIN 3.6 g/dL (3.5-5.0); ALKALINE PHOSPHATASE 89.8 U/L (56-119); ASPARTATE AMINO TRANSFERASE 27.8 U/L (17-59); BILIRUBIN,TOTAL 0.4 mg/dL (0.2-1.3); BLOOD UREA NITROGEN 23.9 mg/dL (9-20); CALCIUM 8.77 mg/dL (8.4-10.2); CARBON DIOXIDE 19.8 mmol/L (22-30.0); CHLORIDE 101.4 mmol/L (98-107); CREATININE 1.14 mg/dL (0.60-1.10); GLUCOSE 189.5 mg/dL (74-106); POTASSIUM 4.29 mmol/L (3.5-5.1); TOTAL PROTEIN 6.96 g/dL (6.3-8.2)
[2023-08-04] MEDS: HUMALOG SUBCUT PRN ×2 (06:20→11:44)
[2023-08-04] MEDS: SYNTHROID PO SCH (06:31)
[2023-08-04] MEDS ORDERED: PRILOSEC PO SCH (07:30)
[2023-08-04] MEDS ORDERED: AMARYL PO SCH (07:30)
[2023-08-04] MEDS: ROBITUSSIN DM SYRUP PO PRN (09:17)
[2023-08-04] MEDS: NORCO 5-325 PO PRN (09:17)
[2023-08-04] MEDS: CARDIZEM CD PO SCH (09:18)
[2023-08-04] MEDS: VASOTEC PO SCH (09:18)
[2023-08-04] MEDS: PRAVACHOL PO SCH (09:19)
[2023-08-04] MEDS: LIDODERM 5 % PATCH TP SCH (09:19)
[2023-08-04] MEDS: LOVENOX SUBCUT SCH (09:20)
[2023-08-04 10:18] VITALS: PULSE 110; TEMP 98.3
--- NOTE | 2023-08-04 10:32 | DI ---
EXAM: CHEST, TWO VIEWS HISTORY: Cough COMPARISON: 08/02/2023 IMPRESSION: Cardiomediastinal contours appear stable. Bibasilar interstitial infiltrate and consoli dation. This likely represents a combination of atelectasis and/or pneumonia. Blunting of the later al and posterior costophrenic angles consistent with small bilateral pleural effusion. No pneumothor ax
--- NOTE | 2023-08-04 11:38 | DCSUM ---
Admission Date Admission Date: 08/02/23 Discharge Date Discharge Date: 08/04/23 Admission Diagnosis Admission Diagnosis: 1. Acute symptomatic hyponatremia with weakness and fall 2. Left 5th, 6th, and 7th rib fractures s/p fall 3. Weakness and fall 4. Hypomagnesemia Discharge Diagnosis Discharge Diagnosis: 1. Acute symptomatic hyponatremia with weakness and fall, improved 2. Left 5th, 6th, and 7th rib fractures s/p fall 3. Weakness and fall 4. Hyperlipidemia 5. Hypothyroidism s/p thyroidectomy 6. Hypertension 7. DMT2 8. Hypomagnesemia - Improved. Hospital Provider Hospital Provider: ALVIN GANNON PA-C, [facility] Primary Care Physician Primary Care Physician: JACKIE OLMOS MD Summary of History and Physical Summary of History and Physical: Patient is a 82 year old male with pmhx of anemia, hypothyroidism s/p thyroidectomy, gerd, hyperlipidemia, hypertension, and DMT2 who presented to ER with fall. He states he got out of bed and then fell onto a carpeted floor on his left side. He laid there about 2 hours. He denies chest pain, sob, tripping. He is unsure if he felt dizzy prior to the fall or not as he was still "half asleep." He states he's been feeling progressively weaker over the past 1 year. He has had a few falls but not frequently. In ER he had a negative ct head and cspine. He had ct chest showing 3 left sided rib fractures. He was given morphine with relief. He was given rocephin due to having a cough last few days. Covid negative. Pt sodium was 124 which is new. He endorses drinking bourbon every night. He also takes HCTZ. Patient admitted to [facility]. Hospital Course Subjective: Patient was treated with NS initially for low sodium. Sodium trended down to 122. He was switched to 3% fluids and sodium slowly trended up, ultimately to 131. Fluids were stopped. Discussed plan to stop triamterene/hctz until f/u with pcp. Monitor sodium outpatient. Pt worried about peripheral swelling without the diuretic, no swelling at time of discharge. Advised to monitor at home. His cough worsened during stay, repeat CXR showing development of suspect pneumonia. Discussed staying another night to initiate antibiotics but patient is adamant he would like to go home. Will discharge on augmentin and doxy. Continue IS multiple times per day. Discussed he may have rib pain for up to 6 weeks. May start with tylenol but use norco if needed. S/e discussed including constipation. Start miralax and colace. Patient agreeable to plan of care. F/u with Dr. Olmos. Dr. Alexys Olmos at bedside today for discharge planning and in agreement. Pt declines home health but agreeable to outpatient therapy. Of note, patient has a urine/serum osmolality pending at discharge, f/u with pcp. Urine sodium 66. Appearance: Pleasant, No Apparent Distress and Alert HEENT: MMM Abdomen: Soft, Non-Tender and No Distention Respiratory: Other (+nonlabored breathing, has a productive cough, left chest wall pain tolerable, CTA laura. ) Extremities: No Edema Vital Signs: Most Recent Vital Signs Temperature 98.3 F 08/04/23 10:00 Temperature Source Oral 08/04/23 10:00 Temperature Source Infrared 08/02/23 06:47 Pulse Rate 110 H 08/04/23 10:00 Respiratory Rate 18 08/04/23 10:00 Blood Pressure 162/90 H 08/04/23 10:00 Blood Pressure Mean 114 08/04/23 10:00 Blood Pressure Left Arm 147/76 08/02/23 09:52 Blood Pressure Location Left Arm 08/04/23 10:00 Blood Pressure Position Supine 08/04/23 10:00 O2 Sat by Pulse Oximetry 100 08/04/23 10:00 Oxygen Delivery Method Room Air 08/04/23 10:00 Height 6 ft 08/02/23 09:52 Weight 181 lb 6 oz 08/02/23 09:52 Telemetry Type Remote Telemetry 08/04/23 07:00 Telemetry Monitoring Continues 08/04/23 07:00 Telemetry Heart Rate 111 H 08/04/23 07:00 EKG PA Interval 0.18 08/04/23 07:00 EKG QRS Interval 0.08 08/04/23 07:00 Telemetry Strip Reading Sinus Tach. with PAC's 08/04/23 07:00 Imaging: EXAM: CT CHEST WITHOUT CONTRAST HISTORY: Fall with left-sided chest pain COMPARISON: CT chest 08/13/2020 TECHNIQUE: Serial axial images of the chest were obtained from the lung apices to the upper abdomen without contrast. These were viewed in multiple planes. FINDINGS: The thyroid has been removed. The visualized vessels demonstrate mild scattered atherosclerotic disease without aneurysm or stenosis. The heart is normal in size without pericardial effusion. There are no pathologically enlarged mediastinal or hilar lymph nodes. There are calcified left hilar lymph nodes. There is no pneumothorax. There is trace left pleural fluid with lower lobe airway thickening bilaterally with consolidations. There are benign calcifications in the left lower lobe. There is minimal pleural thickening bilaterally. The central airways are patent. Limited views of the soft tissues in the upper abdomen demonstrate low attenuation left renal cysts. The osseous structures demonstrate right shoulder arthroplasty. There are left-sided minimally displaced fifth, sixth, and seventh rib fractures. There is multilevel degenerative disease of the spine with facet arthropathy. IMPRESSION: 1. Left-sided minimally displaced fifth sixth and seventh rib fractures. There is no pneumothorax. 2. Trace left pleural fluid with lower lobe airway thickening and consolidations suggestive of atelectasis. 3. Sequela of old granulomatous disease with minimal pleural thickening bilaterally. 4. Left renal cysts. EXAM: CT BRAIN WITHOUT CONTRAST HISTORY: Fall injury TECHNIQUE: Multi-slice sequential. Coronal and sagittal reformations were performed. COMPARISON: None FINDINGS: There is no acute intracranial hemorrhage, extraxial fluid collection, mass affect, or midlineshift. There is mild to moderate diffuse sulcal prominence. Ventricular prominence is consistent with the degree of parenchymal volume loss. Periventricular white matter hypodensity is seen. Intracranial atherosclerosis is present. The basal cisterns are patent. No large vascular territory area of hypodensity is seen within the brain. The calvarium is unremarkable. Visualized paranasal sinuses are clear. Mastoid air cells are clear. :::::::::::::::::::::::::::::: IMPRESSION: 1. No acute intracranial findings. 2. Atrophy and small vessel ischemic disease. EXAM: CT CERVICAL SPINE WITHOUT INTRAVENOUS CONTRAST 08/02/2023. SAGITTAL AND CORONAL REFORMATTED IMAGES OBTAINED HISTORY: Neck pain. Fall COMPARISON: None. FINDINGS: There is approximately 2 mm anterolisthesis of C6 on C7. The remaining cervical levels align normally. Vertebral bodies appear intact and the facet joints align normally. Multilevel chronic degenerative disc disease. Disc space narrowing most severe at C4-C5. Multilevel moderate facet arthropathy. There is no acute fracture or subluxation. IMPRESSION: Chronic and degenerative findings of the cervical spine. There is no acute post traumatic osseous abnormality. EXAM: CHEST, TWO VIEWS HISTORY: Cough COMPARISON: 08/02/2023 IMPRESSION: Cardiomediastinal contours appear stable. Bibasilar interstitial infiltrate and consolidation. This likely represents a combination of atelectasis and/or pneumonia. Blunting of the lateral and posterior costophrenic angles consistent with small bilateral pleural effusion. No pneumothorax Lab Results Last 24 Hours: 08/04/23 08/03/23 08/03/23 05:11 17:02 11:00 WBC 14.38 H RBC 3.46 L Hgb 11.7 L Hct 35.1 L MCV 101.4 H MCH 33.8 H MCHC 33.3 RDW Coeff of Charisma 12.3 Plt Count 253 Immature Gran % (Auto) 1.3 Neut % (Auto) 68.9 Lymph % (Auto) 15.7 [place] % (Auto) 13.6 H Eos % (Auto) 0.3 Baso % (Auto) 0.2 Neut # (Auto) 9.9 H Lymph # (Auto) 2.3 [place] # (Auto) 2.0 Eos # (Auto) 0.1 Baso # (Auto) 0.0 Immature Gran # (Auto) 0.2 Sodium 131.0 L 128.0 L 125.4 L Potassium 4.29 5.13 H 4.93 Chloride 101.4 97.1 L 95.0 L Carbon Dioxide 19.8 L D 28.7 25.3 Anion Gap 14.09 7.33 10.03 BUN 23.9 H 29.1 H 26.3 H Creatinine 1.14 H 1.31 H 1.17 H Estimated GFR (MDRD) 61.00 52.00 59.00 BUN/Creatinine Ratio 20.96 22.21 22.47 Glucose 189.5 H D 281.0 H 305.1 H Calcium 8.77 8.53 8.74 Total Bilirubin 0.40 AST 27.8 ALT 25.0 Alkaline Phosphatase 89.8 Total Protein 6.96 Albumin 3.60 Globulin 3.36 Albumin/Globulin Ratio 1.07 Ur Random Sodium 08/02/23 15:30 WBC RBC Hgb Hct MCV MCH MCHC RDW Coeff of Charisma Plt Count Immature Gran % (Auto) Neut % (Auto) Lymph % (Auto) [place] % (Auto) Eos % (Auto) Baso % (Auto) Neut # (Auto) Lymph # (Auto) [place] # (Auto) Eos # (Auto) Baso # (Auto) Immature Gran # (Auto) Sodium Potassium Chloride Carbon Dioxide Anion Gap BUN Creatinine Estimated GFR (MDRD) BUN/Creatinine Ratio Glucose Calcium Total Bilirubin AST ALT Alkaline Phosphatase Total Protein Albumin Globulin Albumin/Globulin Ratio Ur Random Sodium 66 Discharge Instructions Discharge Planning: Discharge Planning > [address] Fina Olmos. Discharge Medications: Medications at Discharge (Home Meds & RX) calcium carbonate 600 mg calcium (1,500 mg) tablet (Calcium) 600 mg PO BID 11/18/22 vitamin B complex (B Complex-Vitamin B12 tablet) 1 tab PO QDAY 11/18/22 levothyroxine 100 mcg tablet See Rx Instructions .Route .COMPLEX #90 tabs 04/27/23 omeprazole 20 mg capsule,delayed release See Rx Instructions .Route .COMPLEX #90 caps 04/27/23 pravastatin 80 mg tablet See Rx Instructions .Route .COMPLEX #90 tabs 04/27/23 diltiazem HCl 240 mg capsule,extended release 24 hr See Rx Instructions .Route .COMPLEX #90 caps 06/01/23 enalapril maleate 5 mg tablet See Rx Instructions .Route .COMPLEX #90 tabs 06/01/23 glimepiride 4 mg tablet See Rx Instructions .Route .COMPLEX #90 tabs 06/01/23 sitagliptin phosphate 50 mg-metformin 1,000 mg tablet (Janumet) See Rx Instructions .Route .COMPLEX #180 tabs 07/13/23 amoxicillin 875 mg-potassium clavulanate 125 mg tablet 1 tab PO BID 7 days #14 tabs 08/04/23 dextromethorphan-guaifenesin 10 mg-100 mg/5 mL oral syrup 5 ml PO Q6HR PRN cough #237 mL 08/04/23 doxycycline hyclate 100 mg capsule 100 mg PO BID 7 days #14 caps 08/04/23 hydrocodone 5 mg-acetaminophen 325 mg tablet 1 tab PO Q6HR PRN moderate pain (scale score 5-6) #20 tabs 08/04/23 Discharge Plan Discharge Discharge Orders: Discharge Patient (ONCE); Ordered 08/04/23 Ordered By: ALVIN GANNON Activity Restrictions/Additional Instructions: DISCHARGE TO HOME DX: HYPONATREMIA, RIB FRACTURES, PNEUMONIA ACTIVITY: TOLERATED, OUTPATIENT THERAPY INCENTIVE SPIROMETRY, TRY TO DO DURING COMMERCIALS DIET: HEART HEALTHY/DIABETIC, BUT MAY INCLUDE SALT UNTIL PCP FOLLOW UP F/U WITH DR. OLMOS/TIM PHARMACY: [facility] - [facility] ANTIBIOT[facility] MIRALAX AND COLACE OTC FOR CONSTIPATION Instructions: Rib Fracture (GEN), Hyponatremia (GEN), Weakness (GEN) Patient Disposition: HOME SELF-CARE Prescriptions: New dextromethorphan-guaifenesin 10-100 mg/5 mL Syrup 5 ml PO Q6HR PRN (Reason: cough) Qty: 237 0RF hydrocodone-acetaminophen 5-325 mg Tablet 1 tab PO Q6HR PRN (Reason: moderate pain (scale score 5-6)) Qty: 20 0RF amoxicillin-pot clavulanate 875-125 mg tablet 1 tab PO BID 7 Days Qty: 14 0RF doxycycline hyclate 100 mg capsule 100 mg PO BID 7 Days Qty: 14 0RF Continued omeprazole 20 mg capsule,delayed release(DR/EC) See Rx Instructions .ROUTE .COMPLEX Qty: 90 1RF Dose Instruction: TAKE 1 CAPSULE EVERY DAY Rx Instructions: TAKE 1 CAPSULE EVERY DAY levothyroxine 100 mcg tablet See Rx Instructions .ROUTE .COMPLEX Qty: 90 1RF Dose Instruction: TAKE 1 TABLET EVERY DAY Rx Instructions: TAKE 1 TABLET EVERY DAY pravastatin 80 mg tablet See Rx Instructions .ROUTE .COMPLEX Qty: 90 1RF Dose Instruction: TAKE 1 TABLET EVERY DAY Rx Instructions: TAKE 1 TABLET EVERY DAY enalapril maleate 5 mg tablet See Rx Instructions .ROUTE .COMPLEX Qty: 90 1RF Dose Instruction: TAKE 1 TABLET EVERY DAY Rx Instructions: TAKE 1 TABLET EVERY DAY diltiazem HCl 240 mg capsule,extended release 24hr See Rx Instructions .ROUTE .COMPLEX Qty: 90 1RF Dose Instruction: TAKE 1 CAPSULE EVERY DAY Rx Instructions: TAKE 1 CAPSULE EVERY DAY glimepiride 4 mg tablet See Rx Instructions .ROUTE .COMPLEX Qty: 90 1RF Dose Instruction: TAKE 1 TABLET EVERY DAY Rx Instructions: TAKE 1 TABLET EVERY DAY Janumet 50-1,000 mg tablet See Rx Instructions .ROUTE .COMPLEX Qty: 180 1RF Dose Instruction: TAKE 1 TABLET TWICE DAILY Rx Instructions: TAKE 1 TABLET TWICE DAILY calcium carbonate [Calcium 600] 600 mg calcium (1,500 mg) tablet 600 mg PO BID vitamin B complex [B Complex-Vitamin B12] Tablet 1 tab PO QDAY Discontinued triamterene-hydrochlorothiazid 37.5-25 mg tablet 1 tab PO QAM Qty: 90 1RF Rx Instructions: take one 3-4 times weekly Did you review [place] [employer] for ALL controlled substances?: Yes Discussed opioids are addictive and Narcan is available by prescription or from pharmacy.: Yes Condition: Stable Referrals: LAINE KENDRICK, PT [PHYSICAL THERAPIST] - 5-7 Days ([facility] will be in contact with you to initiate services. their phone number is [phone] [email or web address].)
[2023-08-04 14:54] VITALS: BP 161/90; RESP 16
[2023-08-05] MEDS ORDERED: SYNTHROID PO SCH (06:00)
== END 2023-08-04 15:20 | disposition home or self-care (01) | DRG 641 ==
LOC: ED 06:34 → MEDSURG B 09:27
PROVIDERS: ADMIT Hospitalist; ATTEND Physician Assistant
DX: I10 Essential (primary) hypertension; M62.81 Muscle weakness (generalized); E78.5 Hyperlipidemia, unspecified; S22.42XA Multiple fractures of ribs, left side, initial encounter for closed fracture; N28.1 Cyst of kidney, acquired; M43.12 Spondylolisthesis, cervical region; E83.42 Hypomagnesemia; Z20.822 Contact with and (suspected) exposure to COVID-19; M54.2 Cervicalgia; R07.82 Intercostal pain; J98.11 Atelectasis; E11.65 Type 2 diabetes mellitus with hyperglycemia; E87.1 Hypo-osmolality and hyponatremia; E03.9 Hypothyroidism, unspecified; W19.XXXA Unspecified fall, initial encounter